=== PATIENT | female | born 1955 | race African-American/Black ===

== ENCOUNTER 2017-02-03 16:53 | Inpatient (IN) | payer MEDICARE, OTHER ==
[~2017-02-03] VITALS: Ht 175.3 cm; Wt 112.8 kg
[2017-02-03] MEDS ORDERED: ACETAMINOPHEN 500 MG TAB PO ONE (18:00)
[2017-02-03 18:56] LABS: Hemoglobin 11.4 g/dL (12.2-16.2)
[2017-02-03 18:58] LABS: Hematocrit 35.7 % (36.0-46.0); Mean Corpuscular Hemoglobin 26.2 pg (28.0-32.0); Mean Corpuscular Hgb Conc. 31.9 g/dL (32.0-36.0); Mean Corpuscular Volume 82.1 fL (80.0-100.0); Platelet Count (auto) 285 10^3/uL (140-450); Red Blood Cells 4.35 10^6/uL (4.0-5.20); Red Cell Distribution Width 17.3 % (11.8-14.3); White Blood Cell 4.1 10^3/uL (4.4-10.8)
[2017-02-03 19:07] LABS: Band Neutrophils % (manual) 0; Basophils % (manual) 0 (0.0-2.0); Blast Cells 0; Metamyelocytes % 0; Myelocytes % 0; Promyelocytes % 0; Reactive Lymphocytes 0
[2017-02-03 19:21] LABS: Eosinophils % (manual) 1 (0-7); Lymphocytes % (manual) 40 (10.0-50.0); Monocytes % (manual) 19 (0-12)
[2017-02-03 19:33] LABS: BUN/Creatinine Ratio 15.5; Bilirubin, Total 0.3 mg/dL (0.2-1.0); Calcium 8.7 mg/dL (8.5-10.1); Potassium 3.9 mmol/L (3.5-5.1)
[2017-02-03 19:34] LABS: Albumin 3.5 g/dL (3.4-5.0); Total Protein 7.9 g/dL (6.4-8.2)
[2017-02-03] MEDS ORDERED: ALBUTEROL SULF 2.5 MG/0.5ML(0.5%) NEB SOLN NEB ONE (22:30)
[2017-02-03] MEDS ORDERED: IPRATROPIUM BROM 0.5 MG/2.5ML INH SOL NEB ONE (22:30)
[2017-02-03] MEDS ORDERED: methylPREDNISolone SOD SUCC 125 MG/2 ML VL IM ONE (22:30)
[2017-02-03] MEDS ORDERED: cefTRIAXone W LIDOCAINE 1 GM IM IM ONE (22:30)
[2017-02-04] MEDS ORDERED: MORPHINE SULF INJ 2 MG/ML SYRINGE 1ML IV PRN (03:30)
[2017-02-04] MEDS ORDERED: methylPREDNISolone SOD SUCC 125 MG/2 ML VL IV ONE (03:30)
[2017-02-04] MEDS ORDERED: NITROGLYCERIN 0.4 MG SL TAB SL PRN (03:30)
[2017-02-04] MEDS ORDERED: cefTRIAXone 1GM/10ml IVPUSH 10 ML IV ONE (03:30)
[2017-02-04] MEDS ORDERED: HEPARIN SODIUM (PORCINE) 5000 UNITS/ML 1ML VIAL IV ONE (04:30)
[2017-02-04 04:34] LABS: Hematocrit 34.8 % (36.0-46.0); Hemoglobin 11.2 g/dL (12.2-16.2); Mean Corpuscular Hemoglobin 26.5 pg (28.0-32.0); Mean Corpuscular Hgb Conc. 32.3 g/dL (32.0-36.0); Platelet Count (auto) 256 10^3/uL (140-450); Red Blood Cells 4.24 10^6/uL (4.0-5.20); Red Cell Distribution Width 17.1 % (11.8-14.3); White Blood Cell 3.6 10^3/uL (4.4-10.8)
[2017-02-04 04:39] LABS: Basophils % (manual) 0 (0.0-2.0); Blast Cells 0; Myelocytes % 0; Promyelocytes % 0; Reactive Lymphocytes 0
[2017-02-04 04:52] LABS: Urine Bacteria NONE SEEN /hpf (None Seen); Urine Blood Negative /uL (Negative); Urine Mucus FEW (None Seen); Urine WBC 22 /hpf (0 - 5)
[2017-02-04 04:53] LABS: Urine Specific Gravity > 1.050 (1.001-1.035)
[2017-02-04 04:55] LABS: Calcium 8.6 mg/dL (8.5-10.1); Potassium 3.8 mmol/L (3.5-5.1)
[2017-02-04 04:57] LABS: BUN/Creatinine Ratio 22.5
[2017-02-04 05:25] LABS: Band Neutrophils % (manual) 4; Eosinophils % (manual) 1 (0-7); Lymphocytes % (manual) 49 (10.0-50.0); Metamyelocytes % 1; Monocytes % (manual) 22 (0-12)
[2017-02-04 05:38] LABS: INR 1.04 (0.9-1.15); Partial Thromboplastin Time 29.6 sec (22.64-33.71); Prothrombin Time 11.3 sec (9.37-12.3)
[2017-02-04] MEDS: ALBUTEROL SULF 2.5 MG/0.5ML(0.5%) NEB SOLN NEB SCH ×3 (06:26→19:35)
[2017-02-04] MEDS: IPRATROPIUM BROM 0.5 MG/2.5ML INH SOL NEB SCH ×3 (06:26→19:35)
[2017-02-04] MEDS ORDERED: ALBUTEROL SULF 2.5 MG/0.5ML(0.5%) NEB SOLN NEB PRN (11:15)
[2017-02-04] MEDS ORDERED: OSELTAMIVIR 75 MG CAP PO ONE (11:15)
[2017-02-04] MEDS: ENOXAPARIN SOD 100 MG/1 ML SYRINGE SC SCH ×2 (11:22→20:12)
[2017-02-04] MEDS: PARoxetine 20 MG TAB PO SCH (11:22)
[2017-02-04] MEDS ORDERED: methylPREDNISolone SOD SUCC 40 MG/ML VL IV SCH ×2 (12:00→22:00)
[2017-02-04] MEDS: DOXYCYCLINE HYC 100MG/250ML 250 ML IV SCH (12:46)
[2017-02-04] MEDS ORDERED: LOSA100T33 PO (15:33)
[2017-02-04] MEDS ORDERED: PAR20T PO (15:33)
[2017-02-04] MEDS ORDERED: BECL80AE9 IN (15:33)
[2017-02-04] MEDS ORDERED: CEL100T PO (15:33)
[2017-02-04] MEDS ORDERED: HCTZ25T PO (15:33)
[2017-02-04 15:37] VITALS: BP 133/76
[2017-02-04] MEDS: OSELTAMIVIR 75 MG CAP PO SCH (20:12)
[2017-02-04] MEDS: methylPREDNISolone SOD SUCC 40 MG/ML VL IV SCH (21:40)
[2017-02-04 21:55] VITALS: BP 137/90
[2017-02-05] VITALS (7 sets, daily range): BP systolic 125–156; BP diastolic 71–98
[2017-02-05] MEDS: DOXYCYCLINE HYC 100MG/250ML 250 ML IV SCH ×3 (00:21→22:50)
[2017-02-05] MEDS: IPRATROPIUM BROM 0.5 MG/2.5ML INH SOL NEB SCH ×5 (00:33→23:59)
[2017-02-05] MEDS: ALBUTEROL SULF 2.5 MG/0.5ML(0.5%) NEB SOLN NEB SCH ×5 (00:34→23:59)
[2017-02-05] MEDS: OSELTAMIVIR 75 MG CAP PO SCH ×2 (10:00→22:00)
[2017-02-05] MEDS: PARoxetine 20 MG TAB PO SCH (10:51)
[2017-02-05] MEDS: methylPREDNISolone SOD SUCC 40 MG/ML VL IV SCH (10:52)
[2017-02-05] MEDS: ENOXAPARIN SOD 100 MG/1 ML SYRINGE SC SCH ×2 (10:52→22:01)
[2017-02-05] MEDS: PROMETHAZINE W/CODEINE 5 ML ORAL SYRUP PO PRN ×2 (16:51→23:31)
[2017-02-06 05:10] VITALS: BP 124/87
[2017-02-06] MEDS: ALBUTEROL SULF 2.5 MG/0.5ML(0.5%) NEB SOLN NEB SCH ×3 (05:57→21:02)
[2017-02-06] MEDS: IPRATROPIUM BROM 0.5 MG/2.5ML INH SOL NEB SCH ×3 (05:57→21:01)
[2017-02-06] MEDS: methylPREDNISolone SOD SUCC 40 MG/ML VL IV SCH (06:27)
[2017-02-06 09:00] VITALS: BP 132/83
[2017-02-06] MEDS: OSELTAMIVIR 75 MG CAP PO SCH ×2 (10:00→22:00)
[2017-02-06] MEDS: ENOXAPARIN SOD 100 MG/1 ML SYRINGE SC SCH (10:11)
[2017-02-06] MEDS: PROMETHAZINE W/CODEINE 5 ML ORAL SYRUP PO PRN ×2 (10:11→18:20)
[2017-02-06] MEDS: PARoxetine 20 MG TAB PO SCH (10:11)
[2017-02-06] MEDS: DOXYCYCLINE HYC 100MG/250ML 250 ML IV SCH ×2 (10:49→23:15)
[2017-02-06 12:50] LABS: BUN/Creatinine Ratio 17.3; Calcium 8.7 mg/dL (8.5-10.1); Potassium 3.9 mmol/L (3.5-5.1)
[2017-02-06] MEDS ORDERED: IOHEXOL 350 MG/ML 100ML IJ ONE ×2 (12:59→17:09)
[2017-02-06 13:00] VITALS: BP 134/79
[2017-02-06 17:59] VITALS: BP 130/72
[2017-02-06 22:00] VITALS: BP 155/92
[2017-02-06] MEDS: APIXABAN 5 MG TAB PO SCH (22:42)
[2017-02-07] MEDS: IPRATROPIUM BROM 0.5 MG/2.5ML INH SOL NEB SCH ×4 (01:42→20:14)
[2017-02-07] MEDS: ALBUTEROL SULF 2.5 MG/0.5ML(0.5%) NEB SOLN NEB SCH ×4 (01:42→20:14)
[2017-02-07 05:00] VITALS: BP 138/78
[2017-02-07] MEDS: methylPREDNISolone SOD SUCC 40 MG/ML VL IV SCH ×2 (06:18→17:40)
[2017-02-07 08:00] VITALS: BP 142/85
[2017-02-07] MEDS ORDERED: methylPREDNISolone SOD SUCC 40 MG/ML VL IV SCH (10:00)
[2017-02-07] MEDS: AMANTADINE HCL 100 MG CAP PO SCH ×2 (10:47→21:08)
[2017-02-07] MEDS: PARoxetine 20 MG TAB PO SCH (10:47)
[2017-02-07] MEDS: OSELTAMIVIR 75 MG CAP PO SCH ×2 (10:48→21:42)
[2017-02-07] MEDS: LOSARTAN POTASSIUM 50 MG TAB PO SCH (10:48)
[2017-02-07] MEDS: APIXABAN 5 MG TAB PO SCH ×2 (10:48→21:08)
[2017-02-07] MEDS: DOXYCYCLINE HYC 100MG/250ML 250 ML IV SCH (11:19)
[2017-02-07 12:00] VITALS: BP 137/88
[2017-02-07 17:00] VITALS: BP 147/86
[2017-02-07] MEDS ORDERED: HYDROcodone-ACET 5/325MG TAB PO PRN (20:45)
[2017-02-07] MEDS: DOXYCYCLINE 100 MG TAB/CAP PO SCH (21:08)
[2017-02-07 22:00] VITALS: BP 160/93
[2017-02-08] MEDS: ALBUTEROL SULF 2.5 MG/0.5ML(0.5%) NEB SOLN NEB SCH ×3 (00:53→11:40)
[2017-02-08] MEDS: IPRATROPIUM BROM 0.5 MG/2.5ML INH SOL NEB SCH ×3 (00:53→11:40)
[2017-02-08 05:00] VITALS: BP 143/82
[2017-02-08] MEDS: methylPREDNISolone SOD SUCC 40 MG/ML VL IV SCH (05:40)
[2017-02-08 08:00] VITALS: BP 159/99
[2017-02-08] MEDS: AMANTADINE HCL 100 MG CAP PO SCH (09:28)
[2017-02-08] MEDS: LOSARTAN POTASSIUM 50 MG TAB PO SCH (09:28)
[2017-02-08] MEDS: APIXABAN 5 MG TAB PO SCH (09:28)
[2017-02-08] MEDS: DOXYCYCLINE 100 MG TAB/CAP PO SCH (09:28)
[2017-02-08] MEDS: OSELTAMIVIR 75 MG CAP PO SCH (09:29)
[2017-02-08] MEDS: PARoxetine 20 MG TAB PO SCH (09:29)
[2017-02-13] MEDS ORDERED: APIXABAN 5 MG TAB PO SCH (22:00)
== END 2017-02-08 12:30 | disposition home or self-care (01) | DRG 175 ==
LOC: ER 16:57 → TELE 16:58 → TELE-CENTR 02-04 15:14 → CENTRAL 02-04 18:32
PROVIDERS: ADMIT Nurse Practitioner Family; ATTEND Internal Medicine
DX: I26.99 Other pulmonary embolism without acute cor pulmonale (principal); J12.9 Viral pneumonia, unspecified; J10.08 Influenza due to other identified influenza virus with other specified pneumonia; K76.0 Fatty (change of) liver, not elsewhere classified; J45.901 Unspecified asthma with (acute) exacerbation; K44.9 Diaphragmatic hernia without obstruction or gangrene; E66.9 Obesity, unspecified; E78.5 Hyperlipidemia, unspecified; F32.9 Major depressive disorder, single episode, unspecified; I10 Essential (primary) hypertension; Z68.36 Body mass index [BMI] 36.0-36.9, adult
CPT/HCPCS: 36415; 71020; 71275; 80048; 80053; 81001; 81241; 85007; 85027; 85610; 85613; 85670; 85705; 85730; 85732; 87040; 87070; 87086; 87205; 87400; 93005; 93970; 94640; 96374; 96375; J0696; J3490